=== PATIENT | female | born 1980 | race Hispanic/Latino ===

== ENCOUNTER 2019-05-11 18:52 | Emergency (ER) | payer SELFPAY ==
[~2019-05-11] VITALS: Ht 172.7 cm; Wt 68.0 kg
[2019-05-11] MEDS ORDERED: HYDROCODONE/APAP 10MG-325MG TAB PO NR (19:15)
--- NOTE | 2019-05-11 20:12 | Diagnostic Imaging Report ---
Foot complete CPT code: 99965 Indication: Injury to fourth and fifth digits ^4TH AND 5TH TOES Technique: A.P., oblique and lateral views of the right foot obtained. Comparison: None Findings: Calcaneus is intact and normal in morphology. The midfoot is intact. No evidence of displaced fracture or dislocation involving any of the digits. No radiopaque foreign bodies in the soft tissues. IMPRESSION: No acute traumatic pathology. Signed by: Dr. Marcelle Benson MD on 05/11/2019 8:09 PM
[2019-05-11] MEDS ORDERED: BACITRACIN ZINC 0.9GM TP ONE (21:15)
[2019-05-11 21:35] VITALS: BP 158/100
== END 2019-05-11 21:37 | disposition home or self-care (01) ==
LOC: ER 18:52
DX: S90.121A Contusion of right lesser toe(s) without damage to nail, initial encounter (principal); S90.414A Abrasion, right lesser toe(s), initial encounter; W22.09XA Striking against other stationary object, initial encounter; Y92.008 Other place in unspecified non-institutional (private) residence as the place of occurrence of the external cause; I73.00 Raynaud's syndrome without gangrene
CPT/HCPCS: 99283